=== PATIENT | female | born 1985 | race Caucasian/White ===

== ENCOUNTER 2016-11-11 13:22 | Emergency (ER) | payer OTHER ==
[~2016-11-11] VITALS: Ht 160 cm; Wt 81.8 kg
[~2016-11-11 13:22] MED LIST: ALBU8.5H4 IH; FLUO40CA12 PO; PROM25TA14 PO; TOPRAMAX PO; XANAX PO
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
[2016-11-11] MEDS ORDERED: 0.9% Sodium Chloride 1,000 ML IV ONE (13:32)
[2016-11-11 13:34] VITALS: BP 122/80; PULSE 102; RESP 13; O2SAT 97
[2016-11-11] MEDS ORDERED: HYDROmorphone 1 mg/mL Inj IVPUSH PRN (13:35)
[2016-11-11] MEDS ORDERED: HYDROmorphone 0.5 mg/0.5 mL iSecure Syringe IVPUSH PRN (13:35)
[2016-11-11 13:39] LABS: BASOPHILS % (AUTO) 0.2 % (0-3); MONOCYTES % (AUTO) 11.3 % (4-12); Mean Corpuscular Hemoglobin 28.7 pg (27.0-35.0); Mean Corpuscular Volume 88.9 fL (81-100); NEUTROPHILS % (AUTO) 55.7 % (40-74); Platelet Count 378 bil/L (150-400)
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
[2016-11-11 14:11] LABS: Lipase 19 U/L (13-60)
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
[2016-11-11] MEDS ORDERED: oxyCODONE-Acetamin 5-325 mg Tablet PO ONE (15:20)
[2016-11-11] MEDS ORDERED: PROM12.510 PO (16:31)
[2016-11-11] MEDS ORDERED: OXYC-388 PO (16:31)
[2016-11-11] MEDS ORDERED: NPR500T PO (16:31)
[2016-11-11] MEDS ORDERED: DIAZ5TAB3 PO (16:31)
== END 2016-11-11 16:44 | disposition home or self-care (01) ==
LOC: SED 13:22
DX: S06.0X9A Concussion with loss of consciousness of unspecified duration, initial encounter (principal); S00.81XA Abrasion of other part of head, initial encounter; S56.912A Strain of unspecified muscles, fascia and tendons at forearm level, left arm, initial encounter; S16.1XXA Strain of muscle, fascia and tendon at neck level, initial encounter; V44.5XXA Car driver injured in collision with heavy transport vehicle or bus in traffic accident, initial encounter; Y92.410 Unspecified street and highway as the place of occurrence of the external cause; Y93.89 Activity, other specified; Y99.8 Other external cause status; M54.9 Dorsalgia, unspecified; G89.29 Other chronic pain
CPT/HCPCS: 36415; 70450; 71010; 72072; 72100; 72125; 72170; 73060; 73070; 73110; 80053; 83690; 84703; 85025; 90791; 96361; 96374; 96375; 99285; J1170; J7030

== ENCOUNTER 2016-11-16 22:39 | Emergency (ER) | payer OTHER ==
[~2016-11-16] VITALS: Ht 160 cm; Wt 94.1 kg
[~2016-11-16 22:39] MED LIST changes: +DIAZ5TAB3 PO; +NPR500T PO; +OXYC-388 PO; +PROM12.510 PO
[2016-11-16 22:42] VITALS: BP 113/76; PULSE 79; RESP 18; O2SAT 94
[2016-11-16] MEDS ORDERED: Ondansetron 2 mg/mL 2 mL Inj ONE (23:09)
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
[2016-11-17] MEDS ORDERED: ProchlorPERazine 5 mg/mL 2 mL Inj IVPUSH ONE (00:05)
[2016-11-17 00:13] LABS: Mean Corpuscular Hemoglobin 29.2 pg (27.0-35.0); Mean Corpuscular Volume 89.9 fL (81-100); Platelet Count 414 bil/L (150-400)
[2016-11-17 00:33] LABS: NEUTROPHILS % (AUTO) 42 % (40-74)
[2016-11-17 00:34] LABS: BASOPHILS % (AUTO) 0 % (0-3); EOSINOPHILS % (AUTO) 0 % (0-5); MONOCYTES % (AUTO) 5 % (4-12)
[2016-11-17 01:10] VITALS: BP 106/79; PULSE 77; RESP 16; O2SAT 98
--- NOTE | 2016-11-17 07:58 | DRSVH ---
PROCEDURE: CT BRAIN WITHOUT CONTRAST ([id number]) INDICATIONS: headache TECHNIQUE: Noncontrast 4.5 mm thick angled axial sections acquired from the foramen magnum to the vertex, with c oronal reformats. COMPARISON: [facility], CT, CT BRAIN WO CON, 11/11/2016, 14:05. FINDINGS: Image quality: Excellent. CSF spaces: Basal cisterns are patent. No extra-axial fluid collections. Ventricles are normal in size and shape. Brain: No midline shift. No intracranial masses or hemorrhage. Schuster-white matter interface is norm al. Skull and face: Calvarium and visualized facial bones are intact, without suspicious lesions. Sinuses: Visualized sinuses and mastoids are clear. IMPRESSION: Normal head CT. No significant discrepancy with the manufacturing shift supervisor radiology preliminary report. Dictated by: Rodrigo Davila M.D. on 11/17/2016 at 7:55 Approved by: Rodrigo Davila M.D. on 11/17/2016 at 7:56
== END 2016-11-17 01:10 | disposition home or self-care (01) ==
LOC: SED 22:39
DX: F07.81 Postconcussional syndrome (principal); G44.309 Post-traumatic headache, unspecified, not intractable; Z88.0 Allergy status to penicillin; Z88.5 Allergy status to narcotic agent; Z88.8 Allergy status to other drugs, medicaments and biological substances; Z91.040 Latex allergy status
CPT/HCPCS: 36415; 70450; 80053; 85025; 96361; 96374; 96375; 99285; J0780; J1200; J2405